=== PATIENT | female | born 1995 | race Caucasian/White ===

== ENCOUNTER 2016-07-19 11:44 | Emergency (ER) | payer OTHER ==
[~2016-07-19] VITALS: Ht 157.5 cm; Wt 95.7 kg
[~2016-07-19 11:44] MED LIST: PRENATAL VITAMI PO
[2016-07-19 11:49] VITALS: BP 128/79
--- NOTE | 2016-07-19 11:59 | NUR ---
PATIENT PRESENTS TO ED WITH N/V/D X 1 DAY . PT STATES HAS HEADACHE ,LOWER ABD ,LOWER BACK PAIN AT THIS TIME . SKIN IS PINK/WARM/DRY; AAOX4 WITH EVEN AND STEADY GAIT; LUNGS CLEAR BL; HR EVEN AND REGULAR; PT DENIES ANY FEVER, CP, SOB, OR COUGH AT THIS TIME; PATIENT STATES PAIN OF 7/10 AT THIS TIME; VSS; PATIENT POSITIONED FOR COMFORT; HOB ELEVATED; BEDRAILS UP X2; BED DOWN. ER MD MADE AWARE OF PT STATUS.
[2016-07-19] MEDS ORDERED: ONDANSETRON 4 MG ODT PO ONE (12:05)
[2016-07-19] MEDS ORDERED: DICYCLOMINE HCL LIQUID 20 MG, ALUMINUM HYD/MAG/SIMETHICONE 30 ML, LIDOCAINE VISCOUS 2% ... PO ONE (12:05)
[2016-07-19 12:53] VITALS: BP 119/60
--- NOTE | 2016-07-19 12:53 | NUR ---
Patient discharged with v/s stable. Written and verbal after care instructions given and explained. Patient alert, oriented and verbalized understanding of instructions. Ambulatory with steady gait. All questions addressed prior to discharge. ID band removed. Patient advised to follow up with PMD. Rx of CIPROFLOXACIN HCL, BENTYL & ZOFRAN given. Patient educated on indication of medication including possible reaction and side effects. Opportunity to ask questions provided and answered.
== END 2016-07-19 12:53 | disposition home or self-care (01) ==
LOC: MED 11:44
DX: N39.0 Urinary tract infection, site not specified (principal); R10.13 Epigastric pain
CPT/HCPCS: 81002; 81025; 99283; S0119

== ENCOUNTER 2016-09-16 07:37 | Emergency (ER) | payer OTHER ==
[~2016-09-16] VITALS: Ht 160 cm; Wt 97.5 kg
[~2016-09-16 07:37] MED LIST changes: -PRENATAL VITAMI PO; +[UNRECOGNIZED DRUG - CODE] PO
[2016-09-16 07:50] VITALS: BP 129/79
--- NOTE | 2016-09-16 07:54 | NUR ---
PT AMBULATED TO BED 5.
[2016-09-16] MEDS ORDERED: ALBUTEROL SULFATE/IPRATROPIU 3 ML SOL IH ONE (08:00)
[2016-09-16] MEDS ORDERED: ACETAMIN/CODEINE 120/12MG-5ML 5 ML UDC PO ONE (08:00)
[2016-09-16] MEDS ORDERED: DEXAMETHASONE 4 MG/ML VIAL PO ONE (08:00)
--- NOTE | 2016-09-16 08:00 | NUR ---
21F BIB SELF C/O PRODUCTIVE COUGH WITH WHITE PHLEGM X 3 DAYS; BL LUNG SOUNDS CLEAR, RR EVEN/UNLABORED, BL EQUAL RISE/CHEST NOTED AT THIS TIME; PT STATES NO SHORTNESS OF BREATH OR DIFFICULTY BREATHING AT THIS TIME; PT C/O MID-CHEST PAIN ONLY WITH COUGHING, NON-RADIATING, 3/10 X 3 DAYS; PT C/O NAUSEA, BUT STATES NO VOMITING/DIARRHEA AT THIS TIME; ABDOMEN SOFT, NON-TENDER, ACTIVE BOWEL SOUNDS X 4 QUADRANTS; PT AA&OX4, PERRLA, SKIN IS WARM/DRY/INTACT, STEADY GAIT; PT RESTING IN BED W/ HOB ELEVATED AND IN LOWEST POSITION; POSITIONED FOR COMFORT; ER MD MADE AWARE OF STATUS. WILL CONTINUE TO MONITOR.
--- NOTE | 2016-09-16 08:03 | NUR ---
PT TAKEN TO XRAY VIA W/C ACCOMPANIED BY [facility].
--- NOTE | 2016-09-16 08:26 | NUR ---
RT AT BEDSIDE.
--- NOTE | 2016-09-16 08:27 | NUR ---
ADMITTING DX: COUGH NO HX: ASTHMA; COPD DENIES SOB LOC AWAKE AND ALERT RESPONSIVE TO CORRECTION WORKER VERBAL COMMANDS HOB GREATER THAN 30 DEGREES EDUCATION PROVIDED WITH ACKNOWLEDGEMENT ON HHN THERAPY AND RESPIRATORY DRUG HHN THERAPY GIVEN ORDERED ENCOURAGED PATIENT FOR DEEP BREATHING DURING THERAPY TOLERATED WELL WITHOUT INCIDENT
[2016-09-16] MEDS ORDERED: ONDANSETRON 4 MG ODT PO ONE (09:00)
[2016-09-16 09:28] VITALS: BP 136/86
--- NOTE | 2016-09-16 09:28 | NUR ---
Patient discharged with v/s stable. Written and verbal after care instructions given and explained. Patient alert, oriented and verbalized understanding of instructions. Ambulatory with steady gait. All questions addressed prior to discharge. ID band removed. Patient advised to follow up with PMD. Rx of TYLENOL W/ CODEINE 120MG-12MG/5ML & DECADRON 4MG TAB given. Patient educated on indication of medication including possible reaction and side effects. Opportunity to ask questions provided and answered.
== END 2016-09-16 09:28 | disposition home or self-care (01) ==
LOC: MED 07:37
DX: J04.0 Acute laryngitis (principal); R03.0 Elevated blood-pressure reading, without diagnosis of hypertension; E78.5 Hyperlipidemia, unspecified
CPT/HCPCS: 36415; 71020; 87804; 93005; 94640; 99285; J1100; J7620; S0119

== ENCOUNTER 2017-05-21 19:44 | Emergency (ER) | payer OTHER ==
[~2017-05-21] VITALS: Ht 157.5 cm; Wt 92.1 kg
[~2017-05-21 19:44] MED LIST changes: +PREN-13 PO; -[UNRECOGNIZED DRUG - CODE] PO
[2017-05-21 19:52] VITALS: BP 152/97
--- NOTE | 2017-05-21 20:02 | NUR ---
To bed 2.
--- NOTE | 2017-05-21 20:05 | NUR ---
PATIENT PRESENTS TO ED WITH FLU SYMPTOMS . PT STATES SORE THROAT AND FEVER YESTERDAY. DENIES N/V/D; SKIN IS PINK/WARM/DRY; AAOX4 WITH EVEN AND STEADY GAIT; LUNGS CLEAR BL; HR EVEN AND REGULAR; PT DENIES ANY FEVER, CP, SOB, OR COUGH AT THIS TIME; PATIENT STATES PAIN OF 0/10 AT THIS TIME; VSS; PATIENT POSITIONED FOR COMFORT; HOB ELEVATED; BEDRAILS UP X2; BED DOWN. ER MD MADE AWARE OF PT STATUS.
--- NOTE | 2017-05-21 20:13 | NUR ---
SPOKE TO HILDA FROM LAB, ER IS OUT OF SWAB FOR STREP, LAB WILL RESTOCK FOR ER DEPT.
--- NOTE | 2017-05-21 20:31 | NUR ---
FLU AND STREP COMPLETED AT BEDSIDE, PLACED IN SPECIMEN CONTAINER, HILDA PHLEB NOTIFIED.
[2017-05-21] MEDS ORDERED: ALBUTEROL SULFATE/IPRATROPIU 3 ML SOL IH ONE (21:10)
--- NOTE | 2017-05-21 21:26 | NUR ---
Respiratory Therapist at bedside for respiratory intervention. Patient tolerated WELL.
[2017-05-21 21:55] VITALS: BP 152/97
--- NOTE | 2017-05-21 21:55 | NUR ---
Patient discharged with v/s stable. Written and verbal after care instructions given and explained. Patient alert, oriented and verbalized understanding of instructions. Ambulatory with steady gait. All questions addressed prior to discharge. ID band removed. Patient advised to follow up with PMD. Rx of PROMETHAZINE HYDROCHLORIDE/DEXTROMETHORPHAN HYDROBROMIDE 6.25-15MG/5ML given. Patient educated on indication of medication including possible reaction and side effects. Opportunity to ask questions provided and answered.
== END 2017-05-21 21:55 | disposition home or self-care (01) ==
LOC: MED 19:44
DX: J06.9 Acute upper respiratory infection, unspecified (principal); R03.0 Elevated blood-pressure reading, without diagnosis of hypertension; Z79.899 Other long term (current) drug therapy
CPT/HCPCS: 36415; 87081; 87804; 99284; J7620

== ENCOUNTER 2017-06-12 17:11 | Emergency (ER) | payer OTHER ==
[~2017-06-12] VITALS: Ht 157.5 cm; Wt 94.9 kg
[2017-06-12 17:29] VITALS: BP 122/84
--- NOTE | 2017-06-12 17:45 | NUR ---
PATIENT PRESENTS TO ED WITH C/O INTERMITTENT RT LOWER BACK PAIN X 3 DAYS; DENIES PAINFUL URINATION . PATIENT STATES PAIN OF 6/10 AT THIS TIME; VSS; PATIENT POSITIONED FOR COMFORT; HOB ELEVATED; BEDRAILS UP X2; BED DOWN. ER MD MADE AWARE OF PT STATUS.
--- NOTE | 2017-06-12 17:50 | NUR ---
Patient being evaluated by physician at bedside.
[2017-06-12 18:22] VITALS: BP 122/84
--- NOTE | 2017-06-12 18:22 | NUR ---
Patient discharged with v/s stable. Written and verbal after care instructions given and explained. Patient alert, oriented and verbalized understanding of instructions. Ambulatory with steady gait. All questions addressed prior to discharge. ID band removed. Patient advised to follow up with PMD. Rx of MOTRIN, MACRODANTIN, PYRIDIUM given. Patient educated on indication of medication including possible reaction and side effects. Opportunity to ask questions provided and answered.
== END 2017-06-12 18:22 | disposition home or self-care (01) ==
LOC: MED 17:11
DX: N39.0 Urinary tract infection, site not specified (principal)
CPT/HCPCS: 81002; 81025; 87086; 99283

== ENCOUNTER 2017-07-25 19:01 | Emergency (ER) | payer OTHER ==
[~2017-07-25] VITALS: Ht 157.5 cm; Wt 95.3 kg
[2017-07-25 19:06] VITALS: BP 152/78
--- NOTE | 2017-07-25 19:10 | NUR ---
PT AMBULATES TO BED 6
--- NOTE | 2017-07-25 19:11 | NUR ---
ASSUMED CARE OF PT AT THIS TIME. C/O LEFT BREAST LUMP W/ PAIN AND REDNESS X 3 DAYS PROOFER BLACK AND WHITE. PT DENIES ANY TRAUMA. AAOX4 WITH EVEN AND STEADY GAIT; PATIENT STATES PAIN OF 5/10 AT THIS TIME; VSS; PATIENT POSITIONED FOR COMFORT; HOB ELEVATED; BEDRAILS UP X2; BED DOWN. ER MD MADE AWARE OF PT STATUS. WILL CONTINUE TO MONITOR.
[2017-07-25] MEDS ORDERED: CLINDAMYCIN 600 MG/4 ML VIAL IM ONE (19:25)
[2017-07-25] MEDS ORDERED: DEXAMETHASONE 10 MG/ML VIAL IM ONE (19:25)
[2017-07-25 20:15] VITALS: BP 148/74
--- NOTE | 2017-07-25 20:15 | NUR ---
Patient discharged with v/s stable. Written and verbal after care instructions given and explained. Patient alert, oriented and verbalized understanding of instructions. Ambulatory with steady gait. All questions addressed prior to discharge. ID band removed. Patient advised to follow up with PMD. Rx of CLINDAMYCIN AND MOTRIN given. Patient educated on indication of medication including possible reaction and side effects. Opportunity to ask questions provided and answered.
== END 2017-07-25 20:15 | disposition home or self-care (01) ==
LOC: MED 19:01
DX: N61.1 Abscess of the breast and nipple (principal)
CPT/HCPCS: 96372; 99284; J1100; J3490

== ENCOUNTER 2019-03-16 18:17 | Emergency (ER) | payer MEDICAID, OTHER ==
[~2019-03-16] VITALS: Ht 157.5 cm; Wt 111.1 kg
[2019-03-16 18:25] VITALS: BP 126/97
--- NOTE | 2019-03-16 18:48 | NUR ---
C/O HEADACHE, BODY ACHES, & SORE THROAT X YESTERDAY. REDNESS NOTED TO PTS THROAT. PAIN /. PT AFEBRILE. DENIES COUGHING OR RINORRHEA. RR EVEN AND UNLABORED. HR 119. PT ALERT AND AWAKE, AMBULATORY WITH STEADY GAIT. MED HX:DENIES
--- NOTE | 2019-03-16 18:53 | NUR ---
PT STATES SHE TOOK TYLENOL YESTERDAY WITH SOME RELIEF
[2019-03-16] MEDS ORDERED: ACETAMINOPHEN EXTRA STRENGTH 500 MG TAB PO ONE (19:00)
--- NOTE | 2019-03-16 19:08 | NUR ---
RECEIVED REPORT FORM [facility]ST[facility]. WILL CONT CARE AT THIS TIME.
[2019-03-16 19:19] VITALS: BP 126/97
--- NOTE | 2019-03-16 19:19 | NUR ---
Patient discharged with v/s stable. Written and verbal after care instructions given and explained. Patient alert, oriented and verbalized understanding of instructions. Ambulatory with steady gait. All questions addressed prior to discharge. ID band removed. Patient advised to follow up with PMD. Rx of TYLENOL EXTRA STRENGHT, TAMIFLU, ANDCEPACOL SORE THORAT AND COUGH given. Patient educated on indication of medication including possible reaction and side effects. Opportunity to ask questions provided and answered.
== END 2019-03-16 19:19 | disposition home or self-care (01) ==
LOC: MED 18:17
DX: B34.9 Viral infection, unspecified (principal); Z79.899 Other long term (current) drug therapy
CPT/HCPCS: 99283